=== PATIENT | male | born 1960 | race Caucasian/White ===

== ENCOUNTER 2022-01-18 15:25 | Emergency (ER) | payer OTHER, SELFPAY ==
[2022-01-18 15:19] VITALS: BP 127/67; PULSE 82; RESP 18; TEMP 36.8; O2SAT 98; BMI 23.2
--- NOTE | 2022-01-18 15:41 | ED_ITS ---
HPI - Weakness General Chief complaint: Diabetic Related Problem Stated complaint: WEAKNESS,DIABETIC CONCERN Source: patient, family, RN notes reviewed and old records reviewed History of Present Illness HPI Narrative: 61-year-old man presenting to the emergency department with complaint of weakness particularly in arms and legs. Underlying history of diabetes. Has continuous glucose monitoring. Takes insulin. has been having elevated blood sugars lately or least today, he says he when out of his apartment noted how just generally weak he felt and so called for EMS. Does not describe new sensory loss. There is no syncope. No sense of chest pain or palpitations. No fevers. He says this is so unusual even with elevated blood sugars he does does not understand why he feels so weak. No cough or cold symptoms. He says he is due for his 2:00 o'clock meds. Is particularly concerned about alprazolam. Minimal records are available. Document summary printed from [employer] is helpful problem list includes- Cardiac murmur Hypertension Coronary artery disease status post CABG Hypothyroid-acquired Proliferative diabetic retinopathy Diabetes type 1 with complications Long-term use insulin Lumbar disc disease Trauma and osteoarthritis of both knees Parkinson's Postconcussion syndrome Depression with anxiety Bipolar 2 disorder PTSD Number loss Asthma mild intermittent Appears to have chronic pain. Status post vitrectomy new Peterson extraction lens reimplantation bilaterally Arthroscopically of the knee Shoulder arthroscopy bilateral with labral repairs Again 4 vessel CABG Medications include Lexapro, fentanyl patch, gabapentin, glucagon, hydrocortisone cream, hydroxyzine, ibuprofen, NovoLog, Lantus, regular insulin, levothyroxine, magnesium, meclizine, memantine, metoclopramide, Narcan, nitroglycerin, Zofran, oxycodone, risperidone, tamsulosin, triamcinolone ointment, turmeric, vitamin-C with gonzalo hips Single living in apartment A small cigarette smoke-does note he smokes cigars now. Quit smoking cigarettes he says 5 years ago. Looks like smokes more than an occasional cigar, fairly regular. Related Data Home Medications Medication Instructions Recorded Confirmed Unobtainable 01/18/22 01/18/22 Allergies Allergy/AdvReac Type Severity Reaction Status Date / Time walnut Allergy Anaphylaxis Verified 01/18/22 17:39 prednisone AdvReac Intermediate elevated Verified 01/18/22 17:39 blood sugar Review of Systems Status of ROS: Reports: 10 or more systems reviewed and unremarkable except as noted in History and below [facility] Social History Smoking Status: Light tobacco smoker What tobacco products do you use: cigars Do you use any of these nicotine containing products: None Second hand tobacco smoke exposure: No How often do you have a drink containing alcohol: never AUDIT-C Alcohol total score: 0 Non-prescribed substance use: denies use Exam Narrative: Exam Narrative: Small stature. Pleasant. NAD. GCS 15. Cranial nerves 2-12 intact Well perfused peripherally moving all extremities without difficulty, appears to have normal strength and intact sensation. no edema. Head looks to be atraumatic. Slight the ptosis of the left eye versus the right I think this is probably chronic. There is no scleral injection or icterus. Oropharynx is moist Lungs are clear CV includes a 2/6 systolic murmur regular rate and rhythm Abdomen is soft and nontender. Glucose monitor in place are no inflammatory changes. Const: Vital Signs, click to edit/add: Vital Signs - 24 hr 01/18/22 15:19 01/18/22 18:55 Temperature 98.3 F Pulse Rate 90 Pulse Rate [Pulse Oximeter] 82 Respiratory Rate 18 18 Blood Pressure 140/69 H Blood Pressure [Ri ght Upper Arm] 127/67 Pulse Oximetry 98 Documenting provider has reviewed patient's vital signs: yes Course Course Hospital Course: EKG reviewed by me shows normal sinus at 78 I don't see ischemic changes Will be initiating IV fluids. Pending evaluation for infectious etiologies elevating blood sugars. initial blood sugar here was 357. Discussed recommendations for treating that with Mr. Law. He said quickly that 2 units are how would typically handle that. Is ordered for 2 units of regular insulin. bs recheck on continuous monitor about 1 hour later was ~230's. asked how he would treat, said wouldn't accept more than 1 unit humalog was quite improved he noted. no more weakness. felt could go home and manage. Vital Signs Vital signs: Initial Vital Signs Temperature 98.3 F 01/18/22 15:19 Temperature Source Temporal Artery Scan 01/18/22 15:19 Pulse Rate 82 01/18/22 15:19 Respiratory Rate 18 01/18/22 15:19 Blood Pressure 127/67 01/18/22 15:19 Blood Pressure Mean 87 07/10/22 15:19 Blood Pressure Position Supine 01/18/22 15:19 Pulse Oximetry 98 01/18/22 15:19 Oxygen Delivery Method 01/18/22 15:19 Vital Signs Temperature 98.3 F 01/18/22 15:19 Pulse Rate 82 01/18/22 15:19 Respiratory Rate 18 01/18/22 15:19 Blood Pressure 127/67 01/18/22 15:19 Pulse Oximetry 98 01/18/22 15:19 Temperature 98.3 F 01/18/22 15:19 Pulse Rate 90 01/18/22 18:55 Respiratory Rate 18 01/18/22 18:55 Blood Pressure 140/69 H 01/18/22 18:55 Pulse Oximetry 98 01/18/22 15:19 MDM - Weakness MDM Narrative Medical decision making narrative: no focal weakness. sxs resolved. treated for anxiety -- took own alprazolam -- we were notified after the fact. while here called numerous friends/acquaintances. one brought meds i believe. minimal findings on w/u. small ketones in urine. improved blood sugars which he reports very capable to manage on own Medical Records Attestation: I reviewed the patient's medical records. Lab Data Attestation: I reviewed the patient's lab results. Labs: Lab Results 01/18/22 01/18/22 01/18/22 Range/Units 16:10 16:11 16:11 WBC 8.13 (4.50-11.00) K/uL RBC 4.03 L (4.30-5.90) m/uL Hgb 13.6 (13.5-17.5) gm/dL Hct 38.5 (37.0-53.0) % MCV 96 (80-100) fL MCH 34 (26-34) pg MCHC 35 (32-36) gm/dL RDW Coeff of Jayjay 11.8 (11.5-15.5) % Plt Count 224 (140-440) K/uL Neut % (Auto) 85.0 H (42.0-72.0) % Lymph % (Auto) 10.0 L (20-44) % Morrison % (Auto) 3.8 (0.0-11.0) % Eos % (Auto) 0.2 (0.0-7.0) % Baso % (Auto) 0.6 (0.0-3.0) % Neut # (Auto) 6.90 (1.7-7.0) K/uL Lymph # (Auto) 0.80 L (0.90-2.90) K/uL Morrison # (Auto) 0.30 (0.00-0.90) K/UL Eos # (Auto) 0.02 (0.00-0.50) K/uL Baso # (Auto) 0.05 (0.00-0.30) K/uL Abs Immat Gran (auto) 0.03 (0.00-0.30) K/uL Sodium 133 L (135-149) mmol/L Potassium 3.8 (3.6-5.1) mmol/L Chloride 100 (96-114) mmol/L Carbon Dioxide 27 (20-32) mmol/L BUN 12 (7-30) mg/dL Creatinine 0.8 (0.5-1.5) mg/dL Estimated Creat Clear 63.31 Glucose 357 H* (60-115) mg/dL Venous Lactic Acid (Serial Order) Calcium 8.9 (8.4-10.6) mg/dL Total Bilirubin (0.1-1.5) mg/dL Direct Bilirubin (0.0-0.5) mg/dL AST (12-35) U/L ALT (4-50) U/L Alkaline Phosphatase (40-150) U/L Troponin I (0.01-0.04) ng/mL C-Reactive Protein (0.5-1.0) mg/dL Total Protein (6.0-8.3) g/dL Albumin (3.3-5.0) g/dL Urine Color (Yellow) Urine Appearance (Clear) Urine pH (5.0-8.5) Ur Specific Goldfield (1.000-1.030) Urine Protein (Negative) Urine Glucose (UA) (Negative) Urine Ketones (Negative) Urine Blood (Negative) Urine Nitrite (Negative) Urine Bilirubin (Negative) Urine Urobilinogen (0.2-1.0) Ur Leukocyte Esterase (Negative) Urine RBC (0-2) Urine WBC (0-5) Ur Squamous Epith Cells (None-Few) Urine Bacteria (None) Urine Trichomonas Ethyl Alcohol (0.01-0.03) % SARS-CoV-2 (PCR) Negative SARS-CoV-2 (Negative) 01/18/22 01/18/22 01/18/22 Range/Units 16:11 16:11 16:30 WBC (4.50-11.00) K/uL RBC (4.30-5.90) m/uL Hgb (13.5-17.5) gm/dL Hct (37.0-53.0) % MCV (80-100) fL MCH (26-34) pg MCHC (32-36) gm/dL RDW Coeff of Jayjay (11.5-15.5) % Plt Count (140-440) K/uL Neut % (Auto) (42.0-72.0) % Lymph % (Auto) (20-44) % Morrison % (Auto) (0.0-11.0) % Eos % (Auto) (0.0-7.0) % Baso % (Auto) (0.0-3.0) % Neut # (Auto) (1.7-7.0) K/uL Lymph # (Auto) (0.90-2.90) K/uL Morrison # (Auto) (0.00-0.90) K/UL Eos # (Auto) (0.00-0.50) K/uL Baso # (Auto) (0.00-0.30) K/uL Abs Immat Gran (auto) (0.00-0.30) K/uL Sodium (135-149) mmol/L Potassium (3.6-5.1) mmol/L Chloride (96-114) mmol/L Carbon Dioxide (20-32) mmol/L BUN (7-30) mg/dL Creatinine (0.5-1.5) mg/dL Estimated Creat Clear Glucose (60-115) mg/dL Venous Lactic Acid (Serial Order) Calcium (8.4-10.6) mg/dL Total Bilirubin 0.7 (0.1-1.5) mg/dL Direct Bilirubin 0.3 (0.0-0.5) mg/dL AST 27 (12-35) U/L ALT 31 (4-50) U/L Alkaline Phosphatase 158 H (40-150) U/L Troponin I 0.01 (0.01-0.04) ng/mL C-Reactive Protein < 0.5 L (0.5-1.0) mg/dL Total Protein 6.2 (6.0-8.3) g/dL Albumin 3.9 (3.3-5.0) g/dL Urine Color Yellow (Yellow) Urine Appearance Slightly Cloudy A (Clear) Urine pH 7.0 (5.0-8.5) Ur Specific Goldfield 1.015 (1.000-1.030) Urine Protein Negative (Negative) Urine Glucose (UA) 2+ A (Negative) Urine Ketones 1+ A (Negative) Urine Blood Negative (Negative) Urine Nitrite Negative (Negative) Urine Bilirubin Negative (Negative) Urine Urobilinogen 0.2 (0.2-1.0) Ur Leukocyte Esterase Negative (Negative) Urine RBC 0-2 (0-2) Urine WBC 0-2 (0-5) Ur Squamous Epith Cells None (None-Few) Urine Bacteria None (None) Urine Trichomonas TNP Ethyl Alcohol < 0.01 L (0.01-0.03) % SARS-CoV-2 (PCR) (Negative) Discharge Plan Discharge Clinical Impression: Hyperglycemia, Weakness Patient Disposition: Home w/ Parent or Adult Condition: Improved Additional Instructions: Continue to pay close attention to blood sugars. Treat according to your sliding scales. Return for worsening weakness, fever, repeated vomiting. Prescriptions: No Action Unobtainable 0RF Follow Up/Referrals: Provider,Not a Local [Primary Care Provider] - Stand Alone Forms: [facility] Info Instructions
[2022-01-18] MEDS: 0.9 % SODIUM CHLORIDE 1000 ml 1,000 ML IV (16:09)
[2022-01-18 16:26] LABS: Lactate Sepsis w/Reflex* 1.8 mmol/L (0.5-1.9)
[2022-01-18 16:28] LABS: Basophils Absolute Auto 0.05 K/uL (0.00-0.30); Basophils Percent Auto 0.6 % (0.0-3.0); Eosinophils Absolute Auto 0.02 K/uL (0.00-0.50); Eosinophils Percent Auto 0.2 % (0.0-7.0); Hematocrit 38.5 % (37.0-53.0); Hemoglobin* 13.6 gm/dL (13.5-17.5); Immature Granulocytes Abs Auto 0.03 K/uL (0.00-0.30); Mean Corpuscular HGB Conc 35 gm/dL (32-36); Mean Corpuscular Hemoglobin 34 pg (26-34); Mean Corpuscular Volume 96 fL (80-100); Monocytes Percent Auto 3.8 % (0.0-11.0); Platelet Count* 224 K/uL (140-440); RDW Coefficient of Variation % 11.8 % (11.5-15.5); Red Blood Count 4.03 m/uL (4.30-5.90); White Blood Count* 8.13 K/uL (4.50-11.00)
[2022-01-18 16:29] LABS: Slide Review Reflex No
--- NOTE | 2022-01-18 16:35 | ED.NURSE ---
Assisted pt w/ urinal. Informed pt that there is an order for Ativan. Pt asked what it is, informed pt it is similar to his home xanax. Pt then stated I already took my own xanax. aware and ordered to hold ativan.
[2022-01-18 16:39] LABS: Appearance Urine Slightly Cloudy (Clear); Bilirubin Urine Negative (Negative); Blood Urine Negative (Negative); Color Urine Yellow (Yellow); Glucose Urine 2+ (Negative); Ketones Urine 1+ (Negative); Leukocyte Esterase Urine Negative (Negative); Nitrite Urine Negative (Negative); Protein Urine Negative (Negative); Specific Gravity Urine 1.015 (1.000-1.030); Urobilinogen Urine 0.2 (0.2-1.0)
[2022-01-18 16:42] LABS: Chloride* 100 mmol/L (96-114); Potassium* 3.8 mmol/L (3.6-5.1); Sodium* 133 mmol/L (135-149)
[2022-01-18 16:43] LABS: Albumin* 3.9 g/dL (3.3-5.0)
[2022-01-18 16:45] LABS: Blood Urea Nitrogen* 12 mg/dL (7-30); Carbon Dioxide* 27 mmol/L (20-32); Creatinine* 0.8 mg/dL (0.5-1.5); Est. Creatinine Clearance* 63.31; Estimated Glomerular Filt Rate 99.44
[2022-01-18 16:46] LABS: Alkaline Phosphatase* 158 U/L (40-150); Aspartate Amino Transferase* 27 U/L (12-35); Bilirubin Direct* 0.3 mg/dL (0.0-0.5); Bilirubin Total* 0.7 mg/dL (0.1-1.5); Calcium* 8.9 mg/dL (8.4-10.6); Total Protein* 6.2 g/dL (6.0-8.3)
[2022-01-18 16:47] LABS: Alanine Aminotransferase* 31 U/L (4-50)
[2022-01-18 16:49] LABS: RBC Urine 0-2 (0-2); WBC Urine 0-2 (0-5)
[2022-01-18 16:57] LABS: Glucose* 357 mg/dL (60-115)
[2022-01-18 16:58] LABS: C Reactive Protein* < 0.5 mg/dL (0.5-1.0); Ethanol* < 0.01 % (0.01-0.03); Troponin I* 0.01 ng/mL (0.01-0.04)
--- NOTE | 2022-01-18 16:58 | ED.NURSE ---
Critical lab received, blood sugar 357. Dr. Sellers updated.
[2022-01-18 17:05] LABS: SARS PCR* Negative SARS-CoV-2 (Negative)
[2022-01-18 18:55] VITALS: BP 140/69; PULSE 90; RESP 18
== END 2022-01-18 18:56 | disposition home or self-care (01) ==
PROVIDERS: Emergency Provider Family Medicine
DX: E11.65 Type 2 diabetes mellitus with hyperglycemia (principal); R53.1 Weakness
CPT/HCPCS: 36415; 80048; 80076; 81003; 81015; 82077; 84484; 85025; 86140; 87040; 87635; 93005; 99283; 99284; A0425; A0427; J7030

== ENCOUNTER 2022-01-27 13:12 | Outpatient (CLI) | payer OTHER, SELFPAY | END 2022-01-27 13:13 | disposition home or self-care (01) | PROVIDERS: Visit Provider Family Medicine | DX: M17.12 Unilateral primary osteoarthritis, left knee (principal); M25.562 Pain in left knee | CPT/HCPCS: 64454 ==

== ENCOUNTER 2022-02-19 14:52 | Emergency (ER) | payer OTHER, SELFPAY ==
[2022-02-19 15:14] VITALS: BP 151/67; PULSE 76; RESP 16; TEMP 36.2; O2SAT 98; BMI 24.0
--- NOTE | 2022-02-19 15:20 | ED_ITS ---
HPI - General Adult General Chief complaint: Unspecified Complaint, Adult Stated complaint: Needs tetanus shot Time Seen by Provider: 02/19/22 15:00 History of Present Illness HPI narrative: This 61-year-old male comes in for a tetanus vaccination. He states that he called the clinic and was told to come here. He cut his right forearm a couple days ago and has a Band-Aid over wound that seems to be healing properly. He does not have any complaints. Related Data Home Medications Medication Instructions Recorded Confirmed Unobtainable 01/18/22 01/18/22 Allergies Allergy/AdvReac Type Severity Reaction Status Date / Time walnut Allergy Anaphylaxis Verified 01/18/22 17:39 prednisone AdvReac Intermediate elevated Verified 01/18/22 17:39 blood sugar Review of Systems Status of ROS: Reports: 10 or more systems reviewed and unremarkable except as noted in History and below Narrative: Constitutional: No fevers, no weight gain or loss. Eyes: No discharge. No vision changes. HENT: No congestion, no sore throat, no ear pain. Cardiovascular: No chest pain, no palpitations. Respiratory: No shortness of breath, no wheezes, no cough. Gastrointestinal: No abdominal pain, no vomiting, no diarrhea. Genitourinary: No dysuria, no hematuria. Musculoskeletal: Normal range of motion. Skin: No rashes, no pruritis. Neurological: No dizziness, weakness, sensory change, speech change. Endo/Heme/Allergies: No bruising or bleeding. No polydipsia. Pysch: no suicidality, no anxiety, no insomnia. All other systems reviewed and are negative. [facility] Social History Smoking Status: Light tobacco smoker What tobacco products do you use: cigars Do you use any of these nicotine containing products: None Second hand tobacco smoke exposure: No How often do you have a drink containing alcohol: never AUDIT-C Alcohol total score: 0 Non-prescribed substance use: denies use Exam Narrative: Exam Narrative: Constitutional: Well-developed, well-nourished, no acute distress. HEENT: Normocephalic, atraumatic. Neck: Normal range of motion. Nontender. Supple. Heart: Intact distal pulses. Lungs: No chest discomfort. No wheezes, rhonchi, or rales. Abdomen: Nontender. Back: Normal range of motion. Extremities: Normal range of motion. Right forearm has an abrasion with a small full-thickness injury that appears to be healing properly. Skin: Intact. No rash. Warm. No erythema or pallor. Neurologic: No altered sensation. No weakness. Alert and oriented. Psychiatric: No suicidality. No anxiety or depression. No insomnia. Nursing notes and vitals signs are reviewed. Const: Vital Signs, click to edit/add: Vital Signs - 24 hr 02/19/22 15:14 Temperature 97.1 F L Pulse Rate [Right Pulse Oximeter] 76 Respiratory Rate 16 Blood Pressure [Ri ght Upper Arm] 151/67 H Pulse Oximetry 98 Oxygen Delivery Me thod Room Air Course Vital Signs Vital signs: Initial Vital Signs Temperature 97.1 F L 02/19/22 15:14 Temperature Source Temporal Artery Scan 02/19/22 15:14 Pulse Rate 76 02/19/22 15:14 Respiratory Rate 16 02/19/22 15:14 Blood Pressure 151/67 H 02/19/22 15:14 Blood Pressure Mean 95 02/19/22 15:14 Blood Pressure Position Sitting 02/19/22 15:14 Pulse Oximetry 98 02/19/22 15:14 Oxygen Delivery Method 02/19/22 15:14 Vital Signs Temperature 97.1 F L 02/19/22 15:14 Pulse Rate 76 02/19/22 15:14 Respiratory Rate 16 02/19/22 15:14 Blood Pressure 151/67 H 02/19/22 15:14 Pulse Oximetry 98 02/19/22 15:14 Oxygen Delivery Method 02/19/22 15:14 Temperature 97.1 F L 02/19/22 15:14 Pulse Rate 76 02/19/22 15:14 Respiratory Rate 16 02/19/22 15:14 Blood Pressure 151/67 H 02/19/22 15:14 Pulse Oximetry 98 02/19/22 15:14 Oxygen Delivery Method 02/19/22 15:14 Medical Decision Making MDM Narrative Medical decision making narrative: This patient comes in simply to get a tetanus vaccination. He attempted to call the clinic and was instructed to come here. He did receive a tetanus vaccination. His wound appears to be healing properly and there is no indication for any further intervention. Discharge Plan Discharge Clinical Impression: Laceration Patient Disposition: Home, Self-Care Condition: Stable Instructions: Laceration (ED) Additional Instructions: Keep wound clean and dry. Follow up with MD as needed. Prescriptions: No Action Unobtainable Follow Up/Referrals: Provider,Not a Local [Primary Care Provider] - Stand Alone Forms: [employer] Info Instructions
[2022-02-19] MEDS: TETANUS/DIPHTH/PERTUSSIS 0.5 ML SYRINGE IM (15:45)
== END 2022-02-19 15:50 | disposition home or self-care (01) ==
PROVIDERS: Emergency Provider Emergency Medicine Emergency Medical Services
DX: S51.811A Laceration without foreign body of right forearm, initial encounter (principal); Z23 Encounter for immunization
CPT/HCPCS: 90471; 90715; 99281; 99283

== ENCOUNTER 2022-02-20 20:33 | Outpatient (REF) | payer OTHER, SELFPAY ==
[2022-02-20 21:21] LABS: SARS PCR* Negative SARS-CoV-2 (Negative)
== END 2022-02-20 20:34 | disposition home or self-care (01) ==
LOC: NPINS 20:33
PROVIDERS: Visit Provider Family Medicine
DX: Z20.822 Contact with and (suspected) exposure to COVID-19 (principal)
CPT/HCPCS: 87635

== ENCOUNTER 2022-02-24 12:11 | Outpatient (CLI) | payer OTHER, SELFPAY | END 2022-02-24 12:12 | disposition home or self-care (01) | LOC: INJ CL 12:12 | PROVIDERS: Visit Provider Family Medicine | DX: M17.12 Unilateral primary osteoarthritis, left knee (principal); G89.29 Other chronic pain; M25.562 Pain in left knee | CPT/HCPCS: 64624; J2250; J3010 ==

== ENCOUNTER 2022-04-14 17:43 | Emergency (ER) | payer OTHER, SELFPAY ==
[2022-04-14 18:16] VITALS: BP 122/53; PULSE 82; RESP 18; TEMP 37.3; O2SAT 96; BMI 24.2
--- NOTE | 2022-04-14 20:12 | ED.GENADULT ---
HPI - General Adult General Chief complaint: Skin/Abscess/Foreign Body Stated complaint: Insulin needle broke in stomach Time Seen by Provider: 04/14/22 20:05 Source: patient Mode of arrival: ambulatory Limitations: no limitations History of Present Illness HPI narrative: 62-year-old male coming in today concerned about a needle stuck in his abdomen. He states he was given himself an insulin shot when he removed the syringe the needle was gone. This happened several hours ago. He has no significant discomfort. No other concerns. Patient shows me what his needles look like they are less than a 1/2 inch, 30 gauge needles. Patient does however tell me that he is not 100% sure that the needle was in there. Related Data Home Medications Medication Instructions Recorded Confirmed Unobtainable 01/18/22 01/18/22 Allergies Allergy/AdvReac Type Severity Reaction Status Date / Time walnut Allergy Anaphylaxis Verified 01/18/22 17:39 prednisone AdvReac Intermediate elevated Verified 01/18/22 17:39 blood sugar Review of Systems Status of ROS: Reports: 6 or more systems reviewed and unremarkable except as noted in History and below PFSH PFS Social History Smoking Status: Light tobacco smoker What tobacco products do you use: cigars Do you use any of these nicotine containing products: None Second hand tobacco smoke exposure: No How often do you have a drink containing alcohol: never AUDIT-C Alcohol total score: 0 Non-prescribed substance use: denies use service: No Exam Narrative: Exam Narrative: Well-nourished well-developed patient in no acute distress. Alert and oriented. Answers questions appropriately. Mood and affect are appropriate. Thoughts are goal oriented and rational. No tangential or magical thinking noted. Patient speaks in full sentences without needing to catch his breath. HEENT: Normocephalic atraumatic. Pupils are equally round reactive to light. Extraocular muscles are intact. Conjunctivae are moist without any icterus noted. Abdomen: Soft and nontender nondistended with normal bowel sounds. No guarding or rebound. He has some ecchymosis of the anterior abdominal wall consistent with injections. The area that he believes the needle is in is the left lower quadrant. In that area there is no swelling, erythema, sharp objects/foreign objects felt. Const: Vital Signs, click to edit/add: Vital Signs - 24 hr 04/14/22 18:16 Temperature 99.2 F Pulse Rate [Right Pulse Oximeter] 82 Respiratory Rate 18 Blood Pressure [Ri ght Upper Arm] 122/53 L Pulse Oximetry 96 Oxygen Delivery Me thod Room Air Course Vital Signs Vital signs: Initial Vital Signs Temperature 99.2 F 04/14/22 18:16 Temperature Source Temporal Artery Scan 04/14/22 18:16 Pulse Rate 82 04/14/22 18:16 Respiratory Rate 18 04/14/22 18:16 Blood Pressure 122/53 L 04/14/22 18:16 Blood Pressure Mean 76 04/14/22 18:16 Blood Pressure Position Sitting 04/14/22 18:16 Pulse Oximetry 96 04/14/22 18:16 Oxygen Delivery Method 04/14/22 18:16 Vital Signs Temperature 99.2 F 04/14/22 18:16 Pulse Rate 82 04/14/22 18:16 Respiratory Rate 18 04/14/22 18:16 Blood Pressure 122/53 L 04/14/22 18:16 Pulse Oximetry 96 04/14/22 18:16 Oxygen Delivery Method 04/14/22 18:16 Temperature 99.2 F 04/14/22 18:16 Pulse Rate 82 04/14/22 18:16 Respiratory Rate 18 04/14/22 18:16 Blood Pressure 122/53 L 04/14/22 18:16 Pulse Oximetry 96 04/14/22 18:16 Oxygen Delivery Method 04/14/22 18:16 Medical Decision Making MDM Narrative Medical decision making narrative: 62-year-old male with potential foreign body imbedded in the abdominal skin. We discussed doing an x-ray versus ultrasound to see if the needle was there verses not doing anything at this time given that the needle is too small to be appreciated on examination. Patient wishes to do nothing at this time. We discussed things to watch for such as infection, redness swelling or worsening pain. Discharge Plan Discharge Clinical Impression: Foreign body in skin Patient Disposition: Home, Self-Care Condition: Stable Additional Instructions: Watch for signs of infection including redness or swelling of the area. Return to the ER if any of these things developed or you develop worsening pain. Prescriptions: No Action Unobtainable Follow Up/Referrals: Provider,Not a Local [Primary Care Provider] - Stand Alone [facility] Inst[facility]
[2022-04-14 20:21] VITALS: PULSE 84; RESP 16; TEMP 36.7; O2SAT 97
--- OUTSIDE RECORDS SUMMARY | 2022-04-14 20:23 | XMS_ITS | Clinical Summary ---
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 PM CDT Chronic bilateral low back pain without sciatica Other low back p ain Other chronic pa in Other depression Anxiety PTSD (post-traumatic stress disorder) AK INJECTION Routine 01/27/2022 12:00 Primary osteoarthritis R esults for this AA&/STRD GENICULAR AM CDT of both knees procedure are in NRV BRANCHES W/IMG Chronic pain of left t he results knee section. Chronic pain of right knee AMB CONSULT FOR Routine 01/27/2022 12:00 Primary osteoarthriti s Results for this INJECTION AM CDT of both knees procedure are in Chronic pain of left the res ults knee section. Chronic pain of right knee SCAN-OPERATIVE/PROC 01/27/2022 12:00 Resu lts for this EDURE REPORT AM CDT procedure are i n the results section. ACUPUNCTURE PLAN OF Routine 01/22/2022 1:42 Vertigo CARE PM CDT Chronic bilateral low back pain without sciatica Other low back p ain Other chronic pa in Other depression Anxiety PTSD (post-traumatic stress disorder) VITAMIN B12 Routine 01/19/2022 3:30 Bilateral numbness and Re sults for this PM CDT tingling of arms and procedu re are in legs the results section. TSH Routine 01/19/2022 3:30 Bilateral numbness and Re sults for this PM CDT tingling of arms and procedu re are in legs the results section. CBC W PLT NO DIFF Routine 01/19/2022 3:30 Bilateral numbness a nd Results for this PM CDT tingling of arms and procedu re are in legs the results section. COMP METABOLIC Routine 01/19/2022 3:30 Bilateral numbness and Results for this PANEL PM CDT tingling of arms and procedu re are in legs the results section. SCAN-LABORATORY 01/19/2022 12:00 Results for this REPORT AM CDT procedure are i n the results section. SCAN-EYE EXAM 01/18/2022 12:00 Results fo r this AM CDT procedure are i n the results section. ACUPUNCTURE PLAN OF Routine 01/15/2022 1:44 Vertigo CARE PM CDT Chronic bilateral low back pain without sciatica Other low back p ain Other chronic pa in Other depression Anxiety PTSD (post-traumatic stress disorder) ACUPUNCTURE PLAN OF Routine 01/13/2022 1:48 Vertigo CARE PM CDT Chronic bilateral low back pain without sciatica Other low back p ain Other chronic pa in Other depression Anxiety PTSD (post-traumatic stress disorder) from Last 3 Months Results (ABNORMAL) HEMOGLOBIN A1C MONITORING (POCT) (03/23/2022 1:09 PM CDT) Analysis Performed At Patho logist Time Signature HEMOGLOBIN A1C 7.2 (H) <=6.4 % 03/23/2022 [facility] 2:26 PM CDT HOSPITAL (POCT) LABORATORY Specimen Anatomical Collection Method / Collection Time Recei urbano Time (Source) Location / Volume Laterality Blood BLOOD SPECIMEN / Venipuncture / 03/23/2022 1:09 2021 1:10 Unknown Unknown PM CDT PM CDT Narrative [facility] - 03/23/2022 2:26 PM CDT ? (<=6.9%) ? Indicates good control ? (7.0% to 7.9%) ? Indicates fa ir control ? (>=8.0%) ? Indicates poor control ?? NOTE: ??These thresholds are guideli cecilio and ?individual targets may va ry. Falsely low levels may be seen with: Recent Transfusion, Recent Significant B lood Loss, Hemolytic Diseases, or Falsely elevated levels may be seen with : Untreated Anemias, Splenectomy ? Brian Hernandez MD CHEMISTRY Performing Organization Address City/State/ZIP Code Phon e Number [facility] SENDOUT INTERNAL ZIP [place] [phone] [place] [address] (ABNORMAL) BASIC METABOLIC PANEL (03/23/2022 1:09 PM CDT) Analysis Performed At Patho logist Time Signature SODIUM 137 135 - 145 03/23/2022 [facility] mmol/L 1:40 PM CDT [facility]ITAL LAB[facility] POTASSIUM 4.5 3.5 - 5.0 03/23/2022 [facility] mmol/L 1:40 PM CDT [facility] CHLORIDE 101 98 - 110 03/23/2022 [facility] mmol/L 1:40 PM T [facility]OSPITAL LAB[facility] CO2,TOTAL 29 21 - 31 03/23/2022 [facility] mmol/L 1:40 PM T [facility] LAB[facility] ANION GAP 7 5 - 18 03/23/2022 [facility] 1:40 PM T [facility] GLUCOSE 133 (H) 65 - 100 03/23/2022 [facility] mg/dL 1:40 PM T [facility] CALCIUM 9.4 8.5 - 10.5 03/23/2022 [facility] mg/dL 1:40 PM T [facility] BUN 14 8 - 25 03/23/2022 [facility] mg/dL 1:40 PM T [facility] CREATININE 0.93 0.72 - 03/23/2022 [facility] 1.25 mg/dL 1:40 PM T [facility] BUN/CREAT RATIO 15 10 - 20 03/23/2022 [facility] 1:40 PM T [facility] LAB[facility]ORY eGFR >90 >90 03/23/2022 [facility] mL/min/1.7 1:40 PM T HOSPITAL 3m2 LABORATORY Comment: As of 2021, eGFR is calcu lated by the CKD-EPI creatinine equation without race adjustment. eGFR can be inf luenced by muscle mass, exercise, and diet. The reported eGFR is an estimation only and is only applicable if the renal function is stable. Specimen Anatomical Collection Method / Collection Time Recei urbano Time (Source) Location / Volume Laterality Blood BLOOD SPECIMEN / Venipuncture / 03/23/2022 1:09 2021 1:10 Unknown Unknown PM CDT PM CDT Brian Hernandez MD CHEMISTRY Performing Organization Address City/State/ZIP Code Phon e Number [facility] SENDOUT INTERNAL ZIP [place], [place] [phone] [facility] AMB CONSULT FOR INJECTION (02/24/2022 12:00 AM CDT)Only the most recent of2 resultswithin the time period is included. Narrative This result has an attachment that is no t available. Cliff Meehan MD AMB REFERRAL/CONSULT ORD SCAN-LABORATORY REPORT (02/20/2022 12:00 AM CDT)Only the most recent of3 results within the time period is included. Narrative This result has an attachment that is no t available. Scanner OTHER [place] INJECTION AA&/STRD GENICULAR NRV BRANCHES W/IMG (01/27/2022 12:00 AM CDT) Narrative This result has an attachment that is no t available. Cliff Meehan MD PB - NERVOUS SYSTEM SERVICES SCAN-OPERATIVE/PROCEDURE REPORT (01/27/2022 12:00 AM CDT) Narrative This result has an attachment that is no t available. Scanner OTHER (ABNORMAL) TSH (01/19/2022 3:30 PM CDT) P athologist Signature TSH 0.10 (L) 0.35 - 4.94 01/20/2022 [facility] uIU/mL 3:53 PM CDT LABORATORY-[facility] LABORATORY Specimen Anatomical Collection Method / Collection Time Recei urbano Time (Source) Location / Volume Laterality Blood BLOOD SPECIMEN / Venipuncture / 01/19/2022 3:30 2021 3:30 Unknown Unknown PM CDT PM CDT Narrative [facility] LABORATORY-CENTRAL LABORAT ORY - 01/20/2022 3:53 PM CDT In Adults, TSH values between 5.00 and 10.00 uIU/ml do not necessarily indicate the presence of Hyp othyroidism. Correlation with clinical findings such as presence of goiter and/or Thyroperoxidase (TPO) Antibody ma y be helpful. For more information please refer to [facility] 20 ; 291: [id number]. Tayler Adler DO CHEMISTRY Performing Organization Address City/State/ZIP Code Phon e Number [facility] [address] [place] [address] LABORATORY-CENTRAL 2000 LABORATORY (ABNORMAL) CBC W PLT NO DIFF (01/19/2022 3:30 PM CDT) Analysis Performed At Patho logist Time Signature WHITE BLOOD 11.4 (H) 4.5 - 11.0 01/19/2022 [facility] COUNT thou/cu mm 3:33 PM CDT [facility] RED BLOOD COUNT 3.93 (L) 4.30 - 01/19/2022 [facility] 5.90 3:33 PM CDT [facility] mil/cu [facility] HEMOGLOBIN 13.6 13.5 - 01/19/2022 [facility] 17.5 g/dL 3:33 PM CDT [facility] HEMATOCRIT 37.3 37.0 - 01/19/2022 [facility] 53.0 % 3:33 PM CDT [facility] MCV 95 80 - 100 01/19/2022 [facility] fL 3:33 PM CDT [facility] MCH 34.6 (H) 26.0 - 01/19/2022 [facility] 34.0 pg 3:33 PM CDT [facility] MCHC 36.5 (H) 32.0 - 01/19/2022 [facility] 36.0 g/dL 3:33 PM CDT [facility] RDW 11.9 11.5 - 01/19/2022 [facility] 15.5 % 3:33 PM CDT [facility] PLATELET COUNT 245 140 - 440 01/19/2022 [facility] thou/cu mm 3:33 PM CDT [facility] MPV 8.8 6.5 - 11.0 01/19/2022 [facility] fL 3:33 PM CDT [facility] Specimen Anatomical Collection Method / Collection Time Recei urbano Time (Source) Location / Volume Laterality Blood BLOOD SPECIMEN / Venipuncture / 01/19/2022 3:30 2021 3:30 Unknown Unknown PM CDT PM CDT Tayler Adler DO HEMATOLOGY Performing Organization Address City/State/ZIP Code Phon e Number [facility] [address] [place], [place] [phone] [facility] [id number] VITAMIN B12 (01/19/2022 3:30 PM CDT) P athologist Signature VITAMIN B12 272 456 - 914 01/21/2022 [facility] pg/mL 9:57 AM CDT LABORATORY-[facility] LABORATORY Specimen Anatomical Collection Method / Collection Time Recei urbano Time (Source) Location / Volume Laterality Blood BLOOD SPECIMEN / Venipuncture / 01/19/2022 3:30 2021 3:30 Unknown Unknown PM CDT PM CDT Tayler Pepper Adler DO CHEMISTRY Performing Organization Address City/State/ZIP Code Phon e Number [email or web address] [address] [place] [address] LABORATORY-CENTRAL 2000 LABORATORY (ABNORMAL) COMP METABOLIC PANEL (01/19/2022 3:30 PM CDT) [facility] gist Method Time Signature SODIUM 137 135 - 145 01/20/2022 [facility] mmol/L 3:36 PM CDT LABORATORY-[facility]AL LABORATORY POTASSIUM 4.1 3.5 - 5.0 01/20/2022 [facility] mmol/L 3:36 PM CDT LABORATORY-[facility] LABORATORY CHLORIDE 99 98 - 110 01/20/2022 [facility] mmol/L 3:36 PM CDT LABORATORY-[facility] LABORATORY CO2,TOTAL 25 21 - 31 01/20/2022 [facility] mmol/L 3:36 PM CDT LABORATORY-[facility] TRAL LABORATORY ANION GAP 13 5 - 18 01/20/2022 [facility] 3:36 PM CDT LABORATORY-[facility] LABORATORY GLUCOSE 168 (H) 65 - 100 01/20/2022 [facility] mg/dL 3:36 PM CDT LABORATORY-[facility]AL LABORATORY CALCIUM 9.7 8.5 - 10.5 01/20/2022 [facility] mg/dL 3:36 PM CDT LABORATORY-[facility]A TRAL LABORATORY BUN 8 8 - 25 01/20/2022 [facility] mg/dL 3:36 PM CDT LABORATORY-THA TRAL LABORATORY CREATININE 1.03 0.72 - 01/20/2022 [facility] 1.25 mg/dL 3:36 PM CDT LABORATORY-THA TRAL LABORATORY BUN/CREAT RATIO 8 (L) 10 - 20 01/20/2022 [facility] 3:36 PM CDT LABORATORY-[facility] LABORATORY ALBUMIN 4.1 3.2 - 4.6 01/20/2022 [facility] g/dL 3:36 PM CDT LABORATORY-[facility] TRAL LABORATORY PROTEIN,TOTAL 7.0 6.0 - 8.0 01/20/2022 [facility] g/dL 3:36 PM CDT LABORATORY-[facility]A TRAL LABORATORY GLOBULIN 2.9 2.0 - 3.7 01/20/2022 [facility] g/dL 3:36 PM CDT LABORATORY-[facility] TRAL LABORATORY A/G RATIO 1.4 1.0 - 2.0 01/20/2022 [facility] 3:36 PM CDT LABORATORY-[facility]A TRAL LABORATORY BILIRUBIN,TOTAL 0.5 0.2 - 1.2 01/20/2022 [facility] mg/dL 3:36 PM CDT LABORATORY-THA TRAL LABORATORY ALK PHOSPHATASE 145 (H) 50 - 136 01/20/2022 [facility] IU/L 3:36 PM CDT LABORATORY-[facility]AL LABORATORY ALT (SGPT) 29 8 - 45 01/20/2022 [facility] IU/L 3:36 PM CDT LABORATORY-[facility] LABORATORY AST (SGOT) 28 2 - 40 01/20/2022 [facility] IU/L 3:36 PM CDT LABORATORY-[facility] LABORATORY eGFR 82 (L) >90 01/20/2022 [facility] mL/min/1.7 3:36 PM CDT LABORATORY-THA 3m2 TRAL LABORATORY Comment: As of 2021, eGFR is calcu lated by the CKD-EPI creatinine equation without race adjustment. eGFR can be inf luenced by muscle mass, exercise, and diet. The reported eGFR is an estimation only and is only applicable if the renal function is stable. Specimen Anatomical Collection Method / Collection Time Recei urbano Time (Source) Location / Volume Laterality Blood BLOOD SPECIMEN / Venipuncture / 01/19/2022 3:30 2021 3:30 Unknown Unknown PM CDT PM CDT Tayler Adler DO CHEMISTRY Performing Organization Address City/State/ZIP Code Phon e Number [facility] [address] [place] [address] LABORATORY-CENTRAL 2000 LABORATORY SCAN-EYE EXAM (01/18/2022 12:00 AM CDT) Narrative This result has an attachment that is no t available. Scanner OTHER from Last 3 Months Insurance Payer Benefit Plan / Subscriber ID Effective Dates Phone Addre ss Type Group THIRD [employer]AT TPL THIRD DEMO[employer]AT [id number] 2016-Presen PAYOR PAYER t MEDICA [place] MEDICA [id number] 2021-Presen [address] [place] [address] Elvia Fox Third [employer] Party Self 1960 [phone] (Home) [phone] (Work) [place] [address] Advance Directives Documents on File Type Date Recorded Patient Diabetes Educator Explanati on POLST 09/10/2020 Latest Code Status on File Code Status Date Activated Date Inactivated Comments Full Code 07/28/2018 7:14 AM 07/28/2018 1:10 PM Full Code 02/24/2018 7:40 AM 02/24/2018 12:14 PM Care Teams Parts Finisher Relationship Specialty Start Date End Date Tayler Adler DO PCP - General Family Practice 05/14/17 [address] [place] [address]
== END 2022-04-14 20:26 | disposition home or self-care (01) ==
LOC: ED 20:21
PROVIDERS: Emergency Provider Family Medicine
DX: S30.851A Superficial foreign body of abdominal wall, initial encounter (principal); W45.8XXA Other foreign body or object entering through skin, initial encounter; E11.8 Type 2 diabetes mellitus with unspecified complications; Z79.4 Long term (current) use of insulin
CPT/HCPCS: 99282; 99283

== ENCOUNTER 2022-06-29 14:36 | Emergency (ER) | payer OTHER, SELFPAY ==
[2022-06-29 14:45] VITALS: BP 145/69; PULSE 90; RESP 18; O2SAT 99; BMI 24.4
--- NOTE | 2022-06-29 14:53 | CRLHL7_ITS ---
For Patients: As a result of the Cures Act, medical imaging exams and procedure reports are released immediately into your electronic medical record. You may view this report before your referring provider. If you have questions, please contact your health care provider. Indication: Trauma. Technique: Right 3rd digit, 3 views. Comparison: None. Findings/Impression: Bones: Acute mildly displaced comminuted fracture of the 3rd digit distal phalanx. Joint spaces: Unremarkable. Soft tissues: Soft tissue swelling. Dictated by Isma Mason MD @ 06/29/2022 4:18:33 PM (Electronically Signed)
--- NOTE | 2022-06-29 16:11 | ED.GENADULT ---
HPI - General Adult General Time Seen by Provider: 16:12 Date Seen: 06/29/22 Chief complaint: Extremity Pain/Injury, Upper Stated complaint: Middle right finger injury Time Seen by Provider: 06/29/22 16:04 Source: patient Mode of arrival: ambulatory Limitations: no limitations History of Present Illness HPI narrative: Patient is a 62 year white male diabetic who is the independent living person but has a state worker come with him today. He has caught his right long finger in the car door and was concerned might be broken. It has oozed a little bit over the last couple of days. His blood sugars been 145. The patient feels like it might be getting infected. It has been tender and painful. He believes he is up-to-date on tetanus Related Data Previous Rx's Medication Instructions Recorded cephalexin 500 mg capsule 500 mg PO QID #20 caps 06/29/22 Allergies Allergy/AdvReac Type Severity Reaction Status Date / Time walnut Allergy Anaphylaxis Verified 06/29/22 14:45 prednisone AdvReac Intermediate elevated Verified 06/29/22 14:45 blood sugar Review of Systems Narrative: Negative for significant infections, finger injuries, other issues [facility] Social History Smoking Status: Current every day smoker What tobacco products do you use: cigars Do you use any of these nicotine containing products: None Second hand tobacco smoke exposure: No How often do you have a drink containing alcohol: never AUDIT-C Alcohol total score: 0 Non-prescribed substance use: denies use service: No Exam Narrative: Exam Narrative: Objective right 3rd finger shows bruising on the volar surface of the distal phalanx he has got some slight angulation in flexion at the D IP he has avulsed most of the skin around the nail bed so the nail is basically just sitting there with clotting around it and eschar around it. There is no marked cellulitic change or says drainage. Const: Vital Signs, click to edit/add: Vital Signs - 24 hr 06/29/22 14:45 Pulse Rate [Pulse Oximeter] 90 Respiratory Rate 18 Blood Pressure [Ri ght Forearm] 145/69 H Pulse Oximetry 99 Oxygen Delivery Me thod Room Air Course Vital Signs Vital signs: Initial Vital Signs Temperature Source Temporal Artery Scan 06/29/22 14:45 Pulse Rate 90 06/29/22 14:45 Pulse Rhythm 06/29/22 14:45 Respiratory Rate 18 06/29/22 14:45 Blood Pressure 145/69 H 06/29/22 14:45 Blood Pressure Mean 94 06/29/22 14:45 Blood Pressure Position Sitting 06/29/22 14:45 Pulse Oximetry 99 06/29/22 14:45 Oxygen Delivery Method 06/29/22 14:45 Vital Signs Pulse Rate 90 06/29/22 14:45 Respiratory Rate 18 06/29/22 14:45 Blood Pressure 145/69 H 06/29/22 14:45 Pulse Oximetry 99 06/29/22 14:45 Oxygen Delivery Method 06/29/22 14:45 Pulse Rate 90 06/29/22 14:45 Respiratory Rate 18 06/29/22 14:45 Blood Pressure 145/69 H 06/29/22 14:45 Pulse Oximetry 99 06/29/22 14:45 Oxygen Delivery Method 06/29/22 14:45 Medical Decision Making MDM Narrative Medical decision making narrative: Patient has a distal finger phalanx fracture by my read of his x-ray, it is volarly angulated slightly. Will soak the finger will start him on Keflex 500 q.i.d. x5 days. I think given this is several days since this happened he needs an Ortho follow-up appointment for reassessment on this will be set up. He may lose his nail, but I think he needs antibiotics, coverage tonight and then he may soak it couple times a day over the next couple of days, cover with a bandage. Will make ortho appointment for him. Keflex orally x5 days Discharge Plan Discharge Clinical Impression: Fracture of distal phalanx of finger, Injury of nail bed of finger Patient Disposition: Home w/ Parent or Adult Condition: Stable Additional Instructions: Keep covered for 48 hours, then may soak twice a day in soapy water, Keflex 500 q.i.d. x5 days, orthopedic followup as described. Light light use of the right hand Activity Level: Light activity Discharge Diet: Diabetic Prescriptions: New cephalexin 500 mg capsule 500 mg PO QID Qty: 20 0RF Follow Up/Referrals: Provider,Not a Local [Primary Care Provider] - Stand Alone [facility] Instructions
== END 2022-06-29 16:45 | disposition home or self-care (01) ==
PROVIDERS: Emergency Provider Family Medicine
DX: S62.662A Nondisplaced fracture of distal phalanx of right middle finger, initial encounter for closed fracture (principal); W23.0XXA Caught, crushed, jammed, or pinched between moving objects, initial encounter
CPT/HCPCS: 73140; 99283

== ENCOUNTER 2022-07-31 21:46 | Emergency (ER) | payer OTHER, SELFPAY ==
[2022-07-31 21:51] VITALS: BP 188/95; PULSE 89; RESP 18; TEMP 36.8; O2SAT 99; BMI 24.9
--- NOTE | 2022-07-31 22:01 | ED_ITS ---
HPI - Nausea/Vomiting/Diarrhea General Chief complaint: Nausea/Vomiting Stated complaint: nausea Time Seen by Provider: 07/31/22 21:50 History of Present Illness HPI Narrative: Pt is a 62 year old insulin dependent diabetic who presents with a single episode of vomiting tonight. Pt took his usual 6 units of lantus this evening and then vomited his supper which included [employer]. Pt had no blood in the vomitus. No fever or chills. Pt has no abd or chest pain no diarrhea. Pt has only mild nausea at this point. Pt has been feeling fine with no other symptoms. Pt is concerned that his blood sugar will be too low as he vomited his supper. His blood sugar is currently 218. Related Data Home Medications Medication Instructions Recorded Confirmed alprazolam 0.25 mg tablet 0.25 mg PO 06/30/22 06/30/22 aspirin 81 mg tablet,delayed 81 mg PO 06/30/22 06/30/22 release atorvastatin 80 mg tablet 80 mg PO 06/30/22 06/30/22 blood sugar diagnostic (Accu-Chek #10 ea 06/30/22 06/30/22 Siria Plus test strips) blood-glucose sensor (Dexcom G6 #1 ea 06/30/22 06/30/22 Sensor device) blood-glucose transmitter (Dexcom #1 ea 06/30/22 06/30/22 G6 Transmitter device) calcium carb 333 mg-vit D3 133 tab PO 06/30/22 06/30/22 unit-mag ox 133 mg-zinc oxide 5 mg tab ([place]ong Mag Zinc Plus D3) cholecalciferol (vitamin D3) 125 125 mcg PO 06/30/22 06/30/22 mcg (5,000 unit) capsule cyclobenzaprine 10 mg tablet 10 mg PO 06/30/22 06/30/22 diltiazem HCl 120 mg cap PO 06/30/22 06/30/22 capsule,extended release 24 hr docusate sodium 100 mg capsule cap PO 06/30/22 06/30/22 donepezil 5 mg tablet 5 mg PO 06/30/22 06/30/22 duloxetine 20 mg capsule,delayed cap PO 06/30/22 06/30/22 release escitalopram oxalate 10 mg tablet 10 mg PO 06/30/22 06/30/22 fentanyl 50 mcg/hr transdermal 1 patch transdermal 06/30/22 06/30/22 patch gabapentin 100 mg capsule 100 mg PO 06/30/22 06/30/22 hydrocodone 7.5 mg-ibuprofen 200 1 tab PO 06/30/22 06/30/22 mg tablet hydrocortisone 2.5 % topical cream g topical 06/30/22 06/30/22 hydromorphone 2 mg tablet 2 mg PO 06/30/22 06/30/22 hydroxyzine HCl 25 mg tablet 25 mg PO 06/30/22 06/30/22 ibuprofen 600 mg tablet 600 mg PO 06/30/22 06/30/22 insulin aspart U-100 100 unit/mL subcut 06/30/22 06/30/22 (3 mL) subcutaneous pen insulin glargine 100 unit/mL (3 ml subcut 06/30/22 06/30/22 mL) subcutaneous pen (Lantus Solostar U-100 Insulin) levothyroxine 100 mcg tablet 100 mcg PO 06/30/22 06/30/22 levothyroxine 88 mcg tablet 88 mcg PO 06/30/22 06/30/22 meclizine 25 mg tablet 25 mg PO 06/30/22 06/30/22 memantine 5 mg tablet 5 mg PO 06/30/22 06/30/22 metoclopramide HCl 5 mg tablet 5 mg PO 06/30/22 06/30/22 multivitamin-ferrous tab PO 06/30/22 06/30/22 fumarate-folic acid 18 mg-400 mcg tablet (Certavite-Antioxidant) naloxone 4 mg/actuation nasal spray spray intranasal 06/30/22 06/30/22 ondansetron HCl 4 mg tablet 4 mg PO 06/30/22 06/30/22 oxycodone 5 mg tablet 5 mg PO 06/30/22 06/30/22 pen needle, diabetic 31 gauge x #1,200 ea 06/30/22 06/30/2211/24 (BD Ultra-Fine Short Pen Needle) risperidone 0.5 mg tablet 0.5 mg PO 06/30/22 06/30/22 risperidone 1 mg tablet 1 mg PO 06/30/22 06/30/22 risperidone 3 mg tablet 3 mg PO 06/30/22 06/30/22 simvastatin 20 mg tablet 20 mg PO 06/30/22 06/30/22 tamsulosin 0.4 mg capsule cap PO 06/30/22 06/30/22 Previous Rx's Medication Instructions Recorded cephalexin 500 mg capsule 500 mg PO QID #20 caps 06/29/22 Allergies Allergy/AdvReac Type Severity Reaction Status Date / Time walnut Allergy Severe Anaphylaxis Verified 07/31/22 22:29 acetaminophen Allergy Mild Messes Verified 07/31/22 22:29 With DEXCOM Review of Systems Status of ROS: Reports: 10 or more systems reviewed and unremarkable except as noted in History and below [facility] Medical History (Updated 07/31/22 @ 23:01 by Jairo Culp MD) IDDM (insulin dependent diabetes mellitus) Parkinsons disease Social History Smoking Status: Current every day smoker What tobacco products do you use: cigars Do you use any of these nicotine containing products: None Second hand tobacco smoke exposure: No How often do you have a drink containing alcohol: never AUDIT-C Alcohol total score: 0 Non-prescribed substance use: denies use service: No Exam Narrative: Exam Narrative: EXAM GENERAL: Patient appears comfortable and well. EYES: No scleral icterus. THYROID: no thyroid nodules or thyromegaly. LYMPH: No supraclavicular or cervical lymphadenopathy. SKIN: Visible skin seen during exam normal or with benign process only. EXT: No dependent lower extremity pedal edema. HEART: Regular rate and rhythm with no murmurs, rubs, or gallops. LUNGS: Clear to auscultation bilaterally with no crackles or wheezes. ABD: Soft, non tender, non distended. PSYCH: Good eye contact, speech is not pressured. Const: Vital Signs, click to edit/add: Vital Signs - 24 hr 07/31/22 21:51 07/31/22 22:05 07/31/22 22:43 Temperature 98.2 F Pulse Rate [Left P ulse Oximeter] 89 74 Respiratory Rate 18 16 Blood Pressure [Ri ght Upper Arm] 188/95 H 195/85 H Pulse Oximetry 99 90 90 Oxygen Delivery Me thod Room Air Room Air Course Course Hospital Course: Pt seen and examined. Pt given 500 cc saline bolus with 4 mg of IV Zofran. CBC, BMP pending. Reevaluation(s) Reevaluation #1: Pt feeling better after saline and zofran. CBC BMP unremarkable upon my review. Vital Signs Vital signs: Initial Vital Signs Temperature 98.2 F 07/31/22 21:51 Temperature Source Temporal Artery Scan 07/31/22 21:51 Pulse Rate 89 07/31/22 21:51 Respiratory Rate 18 07/31/22 21:51 Blood Pressure 188/95 H 07/31/22 21:51 Blood Pressure Mean 126 07/31/22 21:51 Blood Pressure Position Supine 07/31/22 21:51 Pulse Oximetry 99 07/31/22 21:51 Oxygen Delivery Method 07/31/22 21:51 Vital Signs Temperature 98.2 F 07/31/22 21:51 Pulse Rate 89 07/31/22 21:51 Respiratory Rate 18 07/31/22 21:51 Blood Pressure 188/95 H 07/31/22 21:51 Pulse Oximetry 99 07/31/22 21:51 Oxygen Delivery Method 07/31/22 21:51 Temperature 98.2 F 07/31/22 21:51 Pulse Rate 74 07/31/22 22:43 Respiratory Rate 16 07/31/22 22:43 Blood Pressure 195/85 H 07/31/22 22:43 Pulse Oximetry 90 07/31/22 22:43 Oxygen Delivery Method 07/31/22 22:43 MDM - Nausea/Vomiting/Diarrhea MDM Narrative Medical decision making narrative: Pt is a 62 year old gentleman who was brought in by ambulance tonight as he vomited his supper. Pt was concerned that his blood sugar was low as he took his evening dose of Lantus prior to vomiting. Blood sugar was stable on two occasions once with EMS and once with us here in the ED. Pt given fluids and zofran. Labs stable. Pt had Zofran placed in instymeds and can be discharged to home to advance his diet as tolerated and continue his outpt medications. Differential Diagnosis Differential diagnosis: Likely food poisoning, gastroenteritis, drug-induced nausea and vomiting and dehydration Lab Data Labs: Lab Results 07/31/22 07/31/22 Range/Units 22:04 22:04 WBC 8.32 (4.50-11.00) K/uL RBC 3.78 L (4.30-5.90) m/uL Hgb 12.9 L (13.5-17.5) gm/dL Hct 37.2 (37.0-53.0) % MCV 98 (80-100) fL MCH 34 (26-34) pg MCHC 35 (32-36) gm/dL RDW Coeff of Jayjay 12.3 (11.5-15.5) % Plt Count 251 (140-440) K/uL Neut % (Auto) 80.9 H (42.0-72.0) % Lymph % (Auto) 12.6 L (20-44) % [place] % (Auto) 5.0 (0.0-11.0) % Eos % (Auto) 0.8 (0.0-7.0) % Baso % (Auto) 0.6 (0.0-3.0) % Neut # (Auto) 6.70 (1.7-7.0) K/uL Lymph # (Auto) 1.00 (0.90-2.90) K/uL [place] # (Auto) 0.40 (0.00-0.90) K/UL Eos # (Auto) 0.07 (0.00-0.50) K/uL Baso # (Auto) 0.05 (0.00-0.30) K/uL Sodium 137 (135-149) mmol/L Potassium 4.6 (3.6-5.1) mmol/L Chloride 103 (96-114) mmol/L Carbon Dioxide 30 (20-32) mmol/L BUN 17 (7-30) mg/dL Creatinine 0.7 (0.5-1.5) mg/dL Estimated Creat Clear 62.49 Estimated GFR 103 ml/min Glucose 172 H (60-115) mg/dL Calcium 9.0 (8.4-10.6) mg/dL Discharge Plan Discharge Clinical Impression: Vomiting Condition: Stable Instructions: Gastroenteritis (ED) Activity Level: No Restrictions Discharge Diet: Regular Prescriptions: No Action ondansetron HCl 4 mg tablet 4 mg PO levothyroxine 88 mcg tablet 88 mcg PO meclizine 25 mg tablet 25 mg PO (DME) Dexcom G6 Transmitter Device See Rx Instructions .ROUTE .MEDSUPPLY Qty: 1 Rx Instructions: As directed Certavite-Antioxidant 18-400 mg-mcg tablet PO duloxetine 20 mg capsule,delayed release(DR/EC) PO memantine 5 mg tablet 5 mg PO escitalopram oxalate 10 mg tablet 10 mg PO risperidone 0.5 mg tablet 0.5 mg PO risperidone 1 mg tablet 1 mg PO gabapentin 100 mg capsule 100 mg PO diltiazem HCl 120 mg capsule,extended release 24hr PO docusate sodium 100 mg capsule PO tamsulosin 0.4 mg capsule PO alprazolam 0.25 mg tablet 0.25 mg PO risperidone 3 mg tablet 3 mg PO aspirin 81 mg tablet,delayed release (DR/EC) 81 mg PO atorvastatin 80 mg tablet 80 mg PO fentanyl 50 mcg/hr patch 72 hour 1 patch transdermal (DME) pen needle, diabetic [BD Ultra-Fine Short Pen Needle] 31 gauge x 5/16 needle See Rx Instructions .ROUTE .MEDSUPPLY Qty: 1200 Label Comments: USE THREE TIMES DAILY BEFORE MEALS Rx Instructions: As directed insulin glargine [Lantus Solostar U-100 Insulin] 100 unit/mL (3 mL) insulin pen subcut Label Comments: INJECT 6 UNITS EVERY MORNING AND 5 UNITS EVERY EVENING hydrocodone-ibuprofen 7.5-200 mg tablet 1 tab PO (DME) Dexcom G6 Sensor Device See Rx Instructions .ROUTE .MEDSUPPLY Qty: 1 Rx Instructions: As directed insulin aspart U-100 100 unit/mL (3 mL) insulin pen subcut cyclobenzaprine 10 mg tablet 10 mg PO donepezil 5 mg tablet 5 mg PO oxycodone 5 mg tablet 5 mg PO naloxone 4 mg/actuation spray,non-aerosol intranasal (DME) Accu-Chek Siria Plus test strp Strip See Rx Instructions .ROUTE .MEDSUPPLY Qty: 10 Rx Instructions: As directed levothyroxine 100 mcg tablet 100 mcg PO ibuprofen 600 mg tablet 600 mg PO metoclopramide HCl 5 mg tablet 5 mg PO hydroxyzine HCl 25 mg tablet 25 mg PO hydrocortisone 2.5 % cream topical Label Comments: APPLY TO AFFECTED AREA(S) TWICE A DAY TO ITCHY AREA ON ANKLE simvastatin 20 mg tablet 20 mg PO hydromorphone 2 mg tablet 2 mg PO [place] Mag Zinc Plus D3 333 mg-133 unit -133 mg-5 mg tablet PO cholecalciferol (vitamin D3) 125 mcg (5,000 unit) capsule 125 mcg PO cephalexin 500 mg capsule 500 mg PO QID Qty: 20 0RF Follow Up/Referrals: Provider,Not a Local [Referring] - [facility]
[2022-07-31 22:05] VITALS: O2SAT 90
[2022-07-31] MEDS: 0.9 % SODIUM CHLORIDE 500 ML 500 ML IV (22:05)
[2022-07-31] MEDS: ONDANSETRON 2 MG/ML inj 4 MG IVP (22:05)
[2022-07-31 22:24] LABS: Basophils Absolute Auto 0.05 K/uL (0.00-0.30); Basophils Percent Auto 0.6 % (0.0-3.0); Eosinophils Absolute Auto 0.07 K/uL (0.00-0.50); Eosinophils Percent Auto 0.8 % (0.0-7.0); Hematocrit 37.2 % (37.0-53.0); Hemoglobin* 12.9 gm/dL (13.5-17.5); Immature Granulocytes Abs Auto 0.01 K/uL (0.00-0.30); Immature Granulocytes Pct Auto 0.1 %; Lymphocytes Percent Auto 12.6 % (20-44); Mean Corpuscular HGB Conc 35 gm/dL (32-36); Mean Corpuscular Hemoglobin 34 pg (26-34); Mean Corpuscular Volume 98 fL (80-100); Neutrophils Percent Auto 80.9 % (42.0-72.0); Platelet Count* 251 K/uL (140-440); RDW Coefficient of Variation % 12.3 % (11.5-15.5); Red Blood Count 3.78 m/uL (4.30-5.90); White Blood Count* 8.32 K/uL (4.50-11.00)
[2022-07-31 22:29] LABS: Slide Review Reflex No
[2022-07-31 22:39] LABS: Chloride* 103 mmol/L (96-114); Potassium* 4.6 mmol/L (3.6-5.1); Sodium* 137 mmol/L (135-149)
[2022-07-31 22:42] LABS: Carbon Dioxide* 30 mmol/L (20-32); Creatinine* 0.7 mg/dL (0.5-1.5); Est. Creatinine Clearance* 62.49; Estimated Glomerular Filt Rate 103 ml/min
[2022-07-31 22:43] VITALS: BP 195/85; PULSE 74; RESP 16; O2SAT 90
[2022-07-31 22:43] LABS: Blood Urea Nitrogen* 17 mg/dL (7-30); Glucose* 172 mg/dL (60-115)
== END 2022-07-31 23:39 | disposition home or self-care (01) ==
PROVIDERS: Emergency Provider Internal Medicine; PCP Family Medicine
DX: R11.10 Vomiting, unspecified (principal); E11.9 Type 2 diabetes mellitus without complications; Z79.4 Long term (current) use of insulin
CPT/HCPCS: 36415; 80048; 85025; 94761; 96374; 99283; A0425; A0429; J2405; J7120

== ENCOUNTER 2022-09-12 12:00 | Emergency (ER) | payer OTHER, SELFPAY ==
[2022-09-12 12:06] VITALS: BP 159/94; PULSE 89; RESP 18; TEMP 37.7; O2SAT 95
--- NOTE | 2022-09-12 12:10 | CRLHL7_ITS ---
For Patients: As a result of the Century Cures Act, medical imaging exams and procedure reports are released immediately into your electronic medical record. You may view this report before your referring provider. If you have questions, please contact your health care provider. INDICATION: Fall, right hip pain TECHNIQUE: X-ray right hip, two views and a single view of pelvis COMPARISON: None available FINDINGS: The alignment is. Negative for acute fracture or dislocation. The right femoral head is well formed seated within acetabulum. Mild diffuse osteopenia. Overlying soft tissues unremarkable. IMPRESSION: Negative for acute fracture or dislocation. Dictated by Melly Ralph MD @ 09/12/2022 1:18:53 PM Dictated by: Melly Ralph MD @ 09/12/2022 13:19:08 (Electronically Signed)
[2022-09-12 12:32] LABS: HCO3 VBG 31 mmol/L (21-28); Lactate* 1.6 mmol/L (0.5-1.9); PCO2 VBG 44 mmHG (40-50); PO2 VBG 46.3 mmHG (25-47); pH VBG 7.451 (7.32-7.43)
--- NOTE | 2022-09-12 12:32 | ED_ITS ---
HPI - General Adult General Date Seen: 09/12/22 Chief complaint: Hip Injury/Pain Stated complaint: Fall yesterday Time Seen by Provider: 09/12/22 12:09 Source: patient and EMS Mode of arrival: EMS Limitations: no limitations History of Present Illness HPI narrative: Patient is a 62-year-old male here via EMS with right hip and buttock pain after a fall last night. He tells me that he had fallen backwards, no loss of consciousness, denies head, neck, back, chest or abdominal pain. He has had pain in his right buttock and hip since last night. He says he was able to limp on it last night but this morning was not able to put any weight on it and called EMS. They reported they had to transport him down the stairs by chair transfer. He lives independently in an apartment on the 2nd floor. He is here with his case investigator. He has type 1 diabetes and uses a Dexcom as well as insulin. Apparently his blood sugars have been somewhat labile, were low earlier in the month and now have been running high. No reported illness, nausea vomiting diarrhea, chest pain, shortness of breath or other symptoms. Related Data Home Medications Medication Instructions Recorded Confirmed alprazolam 0.25 mg tablet 0.125 mg PO BID@09,14 06/30/22 09/12/22 aspirin 81 mg tablet,delayed 81 mg PO DAILY 06/30/22 09/12/22 release atorvastatin 80 mg tablet 80 mg PO HS 06/30/22 09/12/22 blood sugar diagnostic (Accu-Chek #10 ea 06/30/22 06/30/22 Siria Plus test strips) blood-glucose sensor (Dexcom G6 #1 ea 06/30/22 06/30/22 Sensor device) blood-glucose transmitter (Dexcom #1 ea 06/30/22 06/30/22 G6 Transmitter device) calcium carb 333 mg-vit D3 133 1 tab PO DAILY 06/30/22 09/12/22 unit-mag ox 133 mg-zinc oxide 5 mg tab (Kong Mag Zinc Plus D3) cholecalciferol (vitamin D3) 125 125 mcg PO DAILY 06/30/22 09/12/22 mcg (5,000 unit) capsule cyclobenzaprine 10 mg tablet 10 mg PO 06/30/22 06/30/22 docusate sodium 100 mg capsule cap PO 06/30/22 06/30/22 donepezil 5 mg tablet 5 mg PO 06/30/22 06/30/22 duloxetine 20 mg capsule,delayed 20 mg PO DAILY 06/30/22 09/12/22 release escitalopram oxalate 10 mg tablet 10 mg PO DAILY 06/30/22 09/12/22 fentanyl 50 mcg/hr transdermal 1 patch transdermal Q72H 06/30/22 09/12/22 patch gabapentin 100 mg capsule 100 mg PO TID 06/30/22 09/12/22 hydrocodone 7.5 mg-ibuprofen 200 1 tab PO 06/30/22 06/30/22 mg tablet hydrocortisone 2.5 % topical cream 1 applic topical BID PRN 06/30/22 09/12/22 hydromorphone 2 mg tablet 2 mg PO 06/30/22 06/30/22 hydroxyzine HCl 25 mg tablet 25 mg PO 06/30/22 06/30/22 ibuprofen 600 mg tablet 600 mg PO 06/30/22 06/30/22 insulin aspart U-100 100 unit/mL subcut 06/30/22 06/30/22 (3 mL) subcutaneous pen insulin glargine 100 unit/mL (3 5 - 6 unit subcut BID 06/30/22 09/12/22 mL) subcutaneous pen (Lantus Solostar U-100 Insulin) levothyroxine 100 mcg tablet 100 mcg PO 06/30/22 06/30/22 levothyroxine 88 mcg tablet 88 mcg PO DAILY 06/30/22 09/12/22 meclizine 25 mg tablet 25 mg PO TID PRN 06/30/22 09/12/22 memantine 5 mg tablet 5 - 10 mg PO BID 06/30/22 09/12/22 metoclopramide HCl 5 mg tablet 5 mg PO Q6H PRN nausea and vomiting 06/30/22 09/12/22 multivitamin-ferrous 1 tab PO DAILY 06/30/22 09/12/22 fumarate-folic acid 18 mg-400 mcg tablet (Certavite-Antioxidant) naloxone 4 mg/actuation nasal spray 1 spray intranasal . DIREC PRN 06/30/22 09/12/22 ondansetron HCl 4 mg tablet 4 mg PO 06/30/22 06/30/22 oxycodone 5 mg tablet 5 mg PO 06/30/22 06/30/22 pen needle, diabetic 31 gauge x #1,200 ea 06/30/22 06/30/22 5/16 (BD Ultra-Fine Short Pen Needle) risperidone 0.5 mg tablet 0.5 mg PO HS 06/30/22 09/12/22 risperidone 1 mg tablet 1 mg PO BID@09,14 06/30/22 09/12/22 risperidone 3 mg tablet 3 mg PO HS 06/30/22 09/12/22 tamsulosin 0.4 mg capsule 0.4 mg PO DAILY 06/30/22 09/12/22 alprazolam 0.25 mg tablet 0.25 mg PO HS 09/12/22 09/12/22 ascorbic acid (vitamin C) 1,000 mg 1 g PO DAILY 09/12/22 09/12/22 tablet (C-1000 with Erin Hips) diltiazem HCl 180 mg 180 mg PO DAILY 09/12/22 09/12/22 capsule,extended release 24 hr Previous Rx's Medication Instructions Recorded cephalexin 500 mg capsule 500 mg PO QID #20 caps 06/29/22 Allergies Allergy/AdvReac Type Severity Reaction Status Date / Time walnut Allergy Severe Anaphylaxis Verified 07/31/22 22:29 acetaminophen Allergy Mild Messes Verified 07/31/22 22:29 With DEXCOM Review of Systems Status of ROS: Reports: 10 or more systems reviewed and unremarkable except as noted in History and below [facility] Medical History Asthma, mild intermittent Bipolar 2 disorder BPH with urinary obstruction CAD (coronary artery disease) of bypass graft Controlled substance agreement signed Depression with anxiety Diabetes mellitus type 1 with complications Heart murmur Hypertension Hypothyroidism (acquired) IDDM (insulin dependent diabetes mellitus) Lumbar disc disease Memory loss Parkinsons disease Primary osteoarthritis of knees, bilateral PTSD (post-traumatic stress disorder) Surgical History H/O cataract extraction S/P CABG x 4 Social History Smoking Status: Current every day smoker What tobacco products do you use: cigars Do you use any of these nicotine containing products: None Second hand tobacco smoke exposure: No How often do you have a drink containing alcohol: never AUDIT-C Alcohol total score: 0 Non-prescribed substance use: denies use service: No Exam Narrative: Exam Narrative: Vital signs as noted above. In general, an alert, well-appearing patient. Looks comfortable. Head: Normocephalic, atraumatic. Eyes: Pupils are equal reactive. Extraocular movements are full. Conjunctivae are normal. ENT: Mucous membranes are moist. Throat is normal. Neck: Supple without lymphadenopathy. Nontender to palpation. Heart: Regular rate and rhythm. Systolic murmur heard best at the left sternal border, baseline per patient. Lungs: Clear bilaterally. No increased work of breathing, crackles or wheezes. Abdomen: Soft and nontender. No organomegaly. Extremities: Well perfused. Pulses not felt in either foot. No tenderness to palpation throughout the right lower extremity, which is held slightly flexed for comfort. Pain with internal external rotation of the right hip. Neurologic: Patient is alert and oriented to person and place. Speech is fluent. Face is symmetric. Moves all extremities equally. Affect: Normal. Skin: Warm and dry. Well perfused. Const: Vital Signs, click to edit/add: Vital Signs - 24 hr 09/12/22 12:06 09/12/22 14:08 Temperature 99.9 F H Pulse Rate [Left P ulse Oximeter] 89 83 Respiratory Rate 18 16 Blood Pressure [Ri ght Upper Arm] 159/94 H 154/71 H Pulse Oximetry 95 95 Oxygen Delivery Me thod Room Air Room Air Documenting provider has reviewed patient's vital signs: yes Course Course Hospital Course: An IV was established by the paramedics. We will get some labs here, an x- ray of the right hip and pelvis. Blood sugar per paramedics was 398. Labs here really fairly unremarkable. White blood cell count is 9.5, hemoglobin is 13.1. His electrolytes are normal, blood sugar here is 236, but blood gas shows no evidence of acidosis, in fact he is mildly alkalotic with a pH of 7.45 and a bicarb of 31. Lactate is normal at 1.6. LFTs are normal. Given the fairly unremarkable blood sugar, lack of acidosis, carbon dioxide of 30, I did not feel that the urinalysis was quite is important, I do not think ketoacidosis is likely. He was unable urinate while here. He had initially x-rays of the right hip which by my review were negative. Final radiology read was likewise negative. Given his initial report of inability to bear weight, I did do a CT scan of the right hip as well. I reviewed these images and did not see any evidence of fracture. Final radiology report was likewise negative aside from mild degenerative changes. He did request something for pain here, he normally takes Vicoprofen, 7.5 mg/200 mg, which we do not have on formulary. Therefore I gave him oxycodone 5 mg. Notably, he is on a number of narcotic medications as well as benzodiazepine and gabapentin. After negative imaging, we did have him get up and see how he felt walking around. Using his cane which is how he usually gets around, he was able to ambulate without any difficulty. He feels comfortable going home. I think his labs are reasonable. He can continue to work with his primary care doctor in terms of getting his blood sugars better regulated, but I do not see anything concerning today necessitating admission. Continue current medications. He apparently has an upcoming appointment with his pain specialist. Vital Signs Vital signs: Initial Vital Signs Temperature 99.9 F H 09/12/22 12:06 Temperature Source Temporal Artery Scan 09/12/22 12:06 Pulse Rate 89 09/12/22 12:06 Pulse Rhythm 09/12/22 12:06 Respiratory Rate 18 09/12/22 12:06 Blood Pressure 159/94 H 09/12/22 12:06 Blood Pressure Mean 115 09/12/22 12:06 Pulse Oximetry 95 09/12/22 12:06 Oxygen Delivery Method 09/12/22 12:06 Vital Signs Temperature 99.9 F H 09/12/22 12:06 Pulse Rate 89 09/12/22 12:06 Respiratory Rate 18 09/12/22 12:06 Blood Pressure 159/94 H 09/12/22 12:06 Pulse Oximetry 95 09/12/22 12:06 Oxygen Delivery Method 09/12/22 12:06 Temperature 99.9 F H 09/12/22 12:06 Pulse Rate 83 09/12/22 14:08 Respiratory Rate 16 09/12/22 14:08 Blood Pressure 154/71 H 09/12/22 14:08 Pulse Oximetry 95 09/12/22 14:08 Oxygen Delivery Method 09/12/22 14:08 Medical Decision Making Lab Data Labs: Lab Results 09/12/22 09/12/22 09/12/22 Range/Units 12:11 12:26 12:26 WBC 9.56 (4.50-11.00) K/uL RBC 3.81 L (4.30-5.90) m/uL Hgb 13.1 L (13.5-17.5) gm/dL Hct 37.8 (37.0-53.0) % MCV 99 (80-100) fL MCH 34 (26-34) pg MCHC 35 (32-36) gm/dL RDW Coeff of Jayjay 11.8 (11.5-15.5) % Plt Count 203 (140-440) K/uL Neut % (Auto) 76.1 H (42.0-72.0) % Lymph % (Auto) 14.4 L (20-44) % [place] % (Auto) 7.4 (0.0-11.0) % Eos % (Auto) 1.8 (0.0-7.0) % Baso % (Auto) 0.3 (0.0-3.0) % Neut # (Auto) 7.30 H (1.7-7.0) K/uL Lymph # (Auto) 1.40 (0.90-2.90) K/uL [place] # (Auto) 0.70 (0.00-0.90) K/UL Eos # (Auto) 0.17 (0.00-0.50) K/uL Baso # (Auto) 0.03 (0.00-0.30) K/uL VBG pH (7.32-7.43) VBG pCO2 (40-50) mmHG VBG pO2 (25-47) mmHG VBG HCO3 (21-28) mmol/L Sodium 133 L (135-149) mmol/L Potassium 4.3 (3.6-5.1) mmol/L Chloride 101 (96-114) mmol/L Carbon Dioxide 30 (20-32) mmol/L BUN 23 (7-30) mg/dL Creatinine 0.7 (0.5-1.5) mg/dL Estimated GFR 103 ml/min Glucose 236 H (60-115) mg/dL Lactate (0.5-1.9) mmol/L Calcium 9.3 (8.4-10.6) mg/dL Total Bilirubin 0.6 (0.1-1.5) mg/dL Direct Bilirubin 0.3 (0.0-0.5) mg/dL AST 33 (12-35) U/L ALT 24 (4-50) U/L Alkaline Phosphatase 136 (40-150) U/L Total Protein 6.8 (6.0-8.3) g/dL Albumin 3.9 (3.3-5.0) g/dL SARS-CoV-2 (PCR) Negative SARS-CoV-2 (Negative) 09/12/22 Range/Units 12:26 WBC (4.50-11.00) K/uL RBC (4.30-5.90) m/uL Hgb (13.5-17.5) gm/dL Hct (37.0-53.0) % MCV (80-100) fL MCH (26-34) pg MCHC (32-36) gm/dL RDW Coeff of Jayjay (11.5-15.5) % Plt Count (140-440) K/uL Neut % (Auto) (42.0-72.0) % Lymph % (Auto) (20-44) % [place] % (Auto) (0.0-11.0) % Eos % (Auto) (0.0-7.0) % Baso % (Auto) (0.0-3.0) % Neut # (Auto) (1.7-7.0) K/uL Lymph # (Auto) (0.90-2.90) K/uL [place] # (Auto) (0.00-0.90) K/UL Eos # (Auto) (0.00-0.50) K/uL Baso # (Auto) (0.00-0.30) K/uL VBG pH 7.451 H (7.32-7.43) VBG pCO2 44 (40-50) mmHG VBG pO2 46.3 (25-47) mmHG VBG HCO3 31 H (21-28) mmol/L Sodium (135-149) mmol/L Potassium (3.6-5.1) mmol/L Chloride (96-114) mmol/L Carbon Dioxide (20-32) mmol/L BUN (7-30) mg/dL Creatinine (0.5-1.5) mg/dL Estimated GFR ml/min Glucose (60-115) mg/dL Lactate 1.6 (0.5-1.9) mmol/L Calcium (8.4-10.6) mg/dL Total Bilirubin (0.1-1.5) mg/dL Direct Bilirubin (0.0-0.5) mg/dL AST (12-35) U/L ALT (4-50) U/L Alkaline Phosphatase (40-150) U/L Total Protein (6.0-8.3) g/dL Albumin (3.3-5.0) g/dL SARS-CoV-2 (PCR) (Negative) Discharge Plan Discharge Clinical Impression: Contusion of right hip Patient Disposition: Home, Self-Care Condition: Improved Instructions: Hip Contusion (ED) Additional Instructions: Continue your current medications, you can use ice to the area as needed. Follow-up with your doctors as planned. Prescriptions: No Action ondansetron HCl 4 mg tablet 4 mg PO levothyroxine 88 mcg tablet 88 mcg PO DAILY meclizine 25 mg tablet 25 mg PO TID PRN (DME) Cytosorbents G6 Transmitter Device See Rx Instructions .ROUTE .MEDSUPPLY Qty: 1 Rx Instructions: As directed Certavite-Antioxidant 18-400 mg-mcg tablet 1 tab PO DAILY duloxetine 20 mg capsule,delayed release(DR/EC) 20 mg PO DAILY memantine 5 mg tablet 5 - 10 mg PO BID Rx Instructions: 10 MG (2 TABS) IN AM AND 5 MG (1 TAB) IN PM escitalopram oxalate 10 mg tablet 10 mg PO DAILY risperidone 0.5 mg tablet 0.5 mg PO HS Rx Instructions: TOTAL 3.5 MG AT HS risperidone 1 mg tablet 1 mg PO BID@09,14 gabapentin 100 mg capsule 100 mg PO TID docusate sodium 100 mg capsule PO tamsulosin 0.4 mg capsule 0.4 mg PO DAILY alprazolam 0.25 mg tablet 0.125 mg PO BID@09,14 risperidone 3 mg tablet 3 mg PO HS Rx Instructions: 3.5 MG TOTAL AT HS aspirin 81 mg tablet,delayed release (DR/EC) 81 mg PO DAILY atorvastatin 80 mg tablet 80 mg PO HS fentanyl 50 mcg/hr patch 72 hour 1 patch transdermal Q72H (DME) pen needle, diabetic [BD Ultra-Fine Short Pen Needle] 31 gauge x 5/16 needle See Rx Instructions .ROUTE .MEDSUPPLY Qty: 1200 Label Comments: USE THREE TIMES DAILY BEFORE MEALS Rx Instructions: As directed insulin glargine [Lantus Solostar U-100 Insulin] 100 unit/mL (3 mL) insulin pen 5 - 6 unit subcut BID Label Comments: INJECT 6 UNITS EVERY MORNING AND 5 UNITS EVERY EVENING hydrocodone-ibuprofen 7.5-200 mg tablet 1 tab PO (DME) Dexcom G6 Sensor Device See Rx Instructions .ROUTE .MEDSUPPLY Qty: 1 Rx Instructions: As directed insulin aspart U-100 100 unit/mL (3 mL) insulin pen subcut cyclobenzaprine 10 mg tablet 10 mg PO donepezil 5 mg tablet 5 mg PO oxycodone 5 mg tablet 5 mg PO naloxone 4 mg/actuation spray,non-aerosol 1 spray intranasal . DIREC PRN Rx Instructions: FOR RR LESS THAN 8/MIN (DME) Accu-Chek Siria Plus test strp Strip See Rx Instructions .ROUTE .MEDSUPPLY Qty: 10 Rx Instructions: As directed levothyroxine 100 mcg tablet 100 mcg PO ibuprofen 600 mg tablet 600 mg PO metoclopramide HCl 5 mg tablet 5 mg PO Q6H PRN (Reason: nausea and vomiting) hydroxyzine HCl 25 mg tablet 25 mg PO hydrocortisone 2.5 % cream 1 applic topical BID PRN Label Comments: APPLY TO AFFECTED AREA(S) TWICE A DAY TO ITCHY AREA ON ANKLE hydromorphone 2 mg tablet 2 mg PO [place] Mag Zinc Plus D3 333 mg-133 unit -133 mg-5 mg tablet 1 tab PO DAILY cholecalciferol (vitamin D3) 125 mcg (5,000 unit) capsule 125 mcg PO DAILY alprazolam 0.25 mg tablet 0.25 mg PO HS ascorbic acid (vitamin C) [C-1000 with Erin Hips] 1,000 mg tablet 1 g PO DAILY diltiazem HCl 180 mg capsule,extended release 24hr 180 mg PO DAILY cephalexin 500 mg capsule 500 mg PO QID Qty: 20 0RF Follow Up/Referrals: Tayler Adler DO [Primary Care Provider] - Stand Alone Forms: [facility] Info Instructions
[2022-09-12 12:36] LABS: Basophils Absolute Auto 0.03 K/uL (0.00-0.30); Basophils Percent Auto 0.3 % (0.0-3.0); Eosinophils Absolute Auto 0.17 K/uL (0.00-0.50); Eosinophils Percent Auto 1.8 % (0.0-7.0); Hematocrit 37.8 % (37.0-53.0); Hemoglobin* 13.1 gm/dL (13.5-17.5); Lymphocytes Percent Auto 14.4 % (20-44); Mean Corpuscular HGB Conc 35 gm/dL (32-36); Mean Corpuscular Hemoglobin 34 pg (26-34); Mean Corpuscular Volume 99 fL (80-100); Monocytes Percent Auto 7.4 % (0.0-11.0); Neutrophils Percent Auto 76.1 % (42.0-72.0); Platelet Count* 203 K/uL (140-440); RDW Coefficient of Variation % 11.8 % (11.5-15.5); Red Blood Count 3.81 m/uL (4.30-5.90); White Blood Count* 9.56 K/uL (4.50-11.00)
[2022-09-12 12:37] LABS: Slide Review Reflex No
[2022-09-12 12:50] LABS: Albumin* 3.9 g/dL (3.3-5.0); Chloride* 101 mmol/L (96-114)
[2022-09-12 12:51] LABS: Potassium* 4.3 mmol/L (3.6-5.1); Sodium* 133 mmol/L (135-149)
[2022-09-12 12:53] LABS: Aspartate Amino Transferase* 33 U/L (12-35); Bilirubin Direct* 0.3 mg/dL (0.0-0.5); Bilirubin Total* 0.6 mg/dL (0.1-1.5); Carbon Dioxide* 30 mmol/L (20-32); Creatinine* 0.7 mg/dL (0.5-1.5); Estimated Glomerular Filt Rate 103 ml/min; Total Protein* 6.8 g/dL (6.0-8.3)
--- NOTE | 2022-09-12 12:53 | CRLHL7_ITS ---
For Patients: As a result of the Century Cures Act, medical imaging exams and procedure reports are released immediately into your electronic medical record. You may view this report before your referring provider. If you have questions, please contact your health care provider. HISTORY: Fall. Right hip pain. TECHNIQUE: Noncontrast CT of the right hip. COMPARISON: Radiographs 09/12/2022. FINDINGS: There is no acute pelvic or proximal femoral fracture. There are mild degenerative changes of the hips. Degenerative changes of the sacroiliac joints. No localized fluid collection or space-occupying hematoma. IMPRESSION: 1. No acute pelvic or proximal femoral fracture. 2. Mild degenerative changes of the right hip. Dictated by Onesimo Blair MD @ 09/12/2022 1:51:34 PM Please note that all CT scans at this facility use dose modulation, iterative reconstruction, and/or weight-based dosing when appropriate to reduce radiation dose to as low as reasonably achievable. Dictated by: Onesimo Blair MD @ 09/12/2022 13:51:45 (Electronically Signed)
[2022-09-12 12:54] LABS: Alanine Aminotransferase* 24 U/L (4-50); Alkaline Phosphatase* 136 U/L (40-150); Blood Urea Nitrogen* 23 mg/dL (7-30); Calcium* 9.3 mg/dL (8.4-10.6); Glucose* 236 mg/dL (60-115)
--- NOTE | 2022-09-12 13:18 | ED.NURSE ---
House sup given heads up
[2022-09-12] MEDS: OXYCODONE 5 MG TABLET PO (13:26)
[2022-09-12 13:27] LABS: SARS PCR* Negative SARS-CoV-2 (Negative)
[2022-09-12 14:08] VITALS: BP 154/71; PULSE 83; RESP 16; O2SAT 95
--- NOTE | 2022-09-12 14:17 | ED.NURSE ---
pt ambulated well with cane, pain rated 6/10. pt states this is his normal level of pain. no complaints while walking with cane.
== END 2022-09-12 14:42 | disposition home or self-care (01) ==
PROVIDERS: Emergency Provider Emergency Medicine; PCP Family Medicine
DX: S70.01XA Contusion of right hip, initial encounter (principal); W19.XXXA Unspecified fall, initial encounter
CPT/HCPCS: 36415; 73502; 73700; 80048; 80076; 81001; 82803; 83605; 85025; 87635; 99284; 99285; A0425; A0427; A9270

== ENCOUNTER 2023-03-11 16:35 | Emergency (ER) | payer OTHER, SELFPAY ==
--- NOTE | 2023-03-11 17:07 | ED.GENADULT ---
HPI - General Adult General Time Seen by Provider: 17:07 Date Seen: 03/11/23 Stated complaint: Needs port removed Time Seen by Provider: 03/11/23 17:00 Source: patient Mode of arrival: ambulatory Limitations: no limitations History of Present Illness HPI narrative: patient is a 63-year-old male here to have his port the excess. States he went to his doctor's office today in clinic without he was going to get some fluids are lab work so he at the port accessed. He is post have PD access before he left but after speaking to his doctor he he forgot in left before hand. Patient just wants his port de accessed. No other complaints. Related Data Home Medications Medication Instructions Recorded Confirmed alprazolam 0.25 mg tablet 0.125 mg PO BID@09,14 06/30/22 09/12/22 aspirin 81 mg tablet,delayed 81 mg PO DAILY 06/30/22 09/12/22 release atorvastatin 80 mg tablet 80 mg PO HS 06/30/22 09/12/22 blood sugar diagnostic (Accu-Chek #10 ea 06/30/22 06/30/22 Siria Plus test strips) blood-glucose sensor (Dexcom G6 #1 ea 06/30/22 06/30/22 Sensor device) blood-glucose transmitter (Dexcom #1 ea 06/30/22 06/30/22 G6 Transmitter device) calcium carb 333 mg-vit D3 133 1 tab PO DAILY 06/30/22 09/12/22 unit-mag ox 133 mg-zinc oxide 5 mg tab ([place] Mag Zinc Plus D3) cholecalciferol (vitamin D3) 125 125 mcg PO DAILY 06/30/22 09/12/22 mcg (5,000 unit) capsule cyclobenzaprine 10 mg tablet 10 mg PO 06/30/22 06/30/22 docusate sodium 100 mg capsule cap PO 06/30/22 06/30/22 donepezil 5 mg tablet 5 mg PO 06/30/22 06/30/22 duloxetine 20 mg capsule,delayed 20 mg PO DAILY 06/30/22 09/12/22 release escitalopram oxalate 10 mg tablet 10 mg PO DAILY 06/30/22 09/12/22 fentanyl 50 mcg/hr transdermal 1 patch transdermal Q72H 06/30/22 09/12/22 patch gabapentin 100 mg capsule 100 mg PO TID 06/30/22 09/12/22 hydrocodone 7.5 mg-ibuprofen 200 1 tab PO 06/30/22 06/30/22 mg tablet hydrocortisone 2.5 % topical cream 1 applic topical BID PRN 06/30/22 09/12/22 hydromorphone 2 mg tablet 2 mg PO 06/30/22 06/30/22 hydroxyzine HCl 25 mg tablet 25 mg PO 06/30/22 06/30/22 ibuprofen 600 mg tablet 600 mg PO 06/30/22 06/30/22 insulin aspart U-100 100 unit/mL subcut 06/30/22 06/30/22 (3 mL) subcutaneous pen insulin glargine 100 unit/mL (3 5 - 6 unit subcut BID 06/30/22 09/12/22 mL) subcutaneous pen (Lantus Solostar U-100 Insulin) levothyroxine 100 mcg tablet 100 mcg PO 06/30/22 06/30/22 levothyroxine 88 mcg tablet 88 mcg PO DAILY 06/30/22 09/12/22 meclizine 25 mg tablet 25 mg PO TID PRN 06/30/22 09/12/22 memantine 5 mg tablet 5 - 10 mg PO BID 06/30/22 09/12/22 metoclopramide HCl 5 mg tablet 5 mg PO Q6H PRN nausea and vomiting 06/30/22 09/12/22 multivitamin-ferrous 1 tab PO DAILY 06/30/22 09/12/22 fumarate-folic acid 18 mg-400 mcg tablet (Certavite-Antioxidant) naloxone 4 mg/actuation nasal spray 1 spray intranasal . DIREC PRN 06/30/22 09/12/22 ondansetron HCl 4 mg tablet 4 mg PO 06/30/22 06/30/22 oxycodone 5 mg tablet 5 mg PO 06/30/22 06/30/22 pen needle, diabetic 31 gauge x #1,200 ea 06/30/22 06/30/2211/24 (BD Ultra-Fine Short Pen Needle) risperidone 0.5 mg tablet 0.5 mg PO HS 06/30/22 09/12/22 risperidone 1 mg tablet 1 mg PO BID@09,14 06/30/22 09/12/22 risperidone 3 mg tablet 3 mg PO HS 06/30/22 09/12/22 tamsulosin 0.4 mg capsule 0.4 mg PO DAILY 06/30/22 09/12/22 alprazolam 0.25 mg tablet 0.25 mg PO HS 09/12/22 09/12/22 ascorbic acid (vitamin C) 1,000 mg 1 g PO DAILY 09/12/22 09/12/22 tablet (C-1000 with Erin Hips) diltiazem HCl 180 mg 180 mg PO DAILY 09/12/22 09/12/22 capsule,extended release 24 hr Previous Rx's Medication Instructions Recorded cephalexin 500 mg capsule 500 mg PO QID #20 caps 06/29/22 Allergies Allergy/AdvReac Type Severity Reaction Status Date / Time [place] Allergy Severe Anaphylaxis Verified 07/31/22 22:29 acetaminophen Allergy Mild Messes Verified 07/31/22 22:29 With DEXCOM Review of Systems Narrative: negative unless otherwise stated in HPI PFSH PFSH Medical History Asthma, mild intermittent Bipolar 2 disorder BPH with urinary obstruction CAD (coronary artery disease) of bypass graft Controlled substance agreement signed Depression with anxiety Diabetes mellitus type 1 with complications Heart murmur Hypertension Hypothyroidism (acquired) IDDM (insulin dependent diabetes mellitus) Lumbar disc disease Memory loss Parkinsons disease Primary osteoarthritis of knees, bilateral PTSD (post-traumatic stress disorder) Surgical History H/O cataract extraction S/P CABG x 4 Social History Smoking Status: Current every day smoker What tobacco products do you use: cigars Do you use any of these nicotine containing products: None Second hand tobacco smoke exposure: No How often do you have a drink containing alcohol: never AUDIT-C Alcohol total score: 0 Non-prescribed substance use: denies use service: No Exam Narrative: Exam Narrative: Const: Well-nourished, Well-developed, in No distress Eyes: PERRL, no conjunctival injection, and symmetrical lids ENMT: Atraumatic external nose and ears. Moist mucous membranes MSK:Extremities w/o deformity, Normal Active ROM Skin: Warm, Dry. access port in right upper chest Neuro: Normal Muscle tone, No focal neurological deficits. Psych: Awake, Alert, & Oriented x3. Appropriate mood and affect. Medical Decision Making MDM Narrative Medical decision making narrative: patient is 63-year-old male here to have his port accessed. States he forgot to get the access before he left his doctor's office today he has no other complaints. His port was de accessed he was discharged home. Discharge Plan Discharge Clinical Impression: Port-A-Cath in place Patient Disposition: Home, Self-Care Condition: Stable Instructions: Implanted Venous Access Port (DC) Additional Instructions: follow-up the primary care provider. Return if there is any new symptoms Prescriptions: No Action ondansetron HCl 4 mg tablet 4 mg PO levothyroxine 88 mcg tablet 88 mcg PO DAILY meclizine 25 mg tablet 25 mg PO TID PRN (DME) Dexcom G6 Transmitter Device See Rx Instructions .ROUTE .MEDSUPPLY Qty: 1 Rx Instructions: As directed Certavite-Antioxidant 18-400 mg-mcg tablet 1 tab PO DAILY duloxetine 20 mg capsule,delayed release(DR/EC) 20 mg PO DAILY memantine 5 mg tablet 5 - 10 mg PO BID Rx Instructions: 10 MG (2 TABS) IN AM AND 5 MG (1 TAB) IN PM escitalopram oxalate 10 mg tablet 10 mg PO DAILY risperidone 0.5 mg tablet 0.5 mg PO HS Rx Instructions: TOTAL 3.5 MG AT HS risperidone 1 mg tablet 1 mg PO BID@09,14 gabapentin 100 mg capsule 100 mg PO TID docusate sodium 100 mg capsule PO tamsulosin 0.4 mg capsule 0.4 mg PO DAILY alprazolam 0.25 mg tablet 0.125 mg PO BID@09,14 risperidone 3 mg tablet 3 mg PO HS Rx Instructions: 3.5 MG TOTAL AT HS aspirin 81 mg tablet,delayed release (DR/EC) 81 mg PO DAILY atorvastatin 80 mg tablet 80 mg PO HS fentanyl 50 mcg/hr patch 72 hour 1 patch transdermal Q72H (DME) pen needle, diabetic [BD Ultra-Fine Short Pen Needle] 31 gauge x 5/16 needle See Rx Instructions .ROUTE .MEDSUPPLY Qty: 1200 Patient Comments: USE THREE TIMES DAILY BEFORE MEALS Rx Instructions: As directed insulin glargine [Lantus Solostar U-100 Insulin] 100 unit/mL (3 mL) insulin pen 5 - 6 unit subcut BID Patient Comments: INJECT 6 UNITS EVERY MORNING AND 5 UNITS EVERY EVENING hydrocodone-ibuprofen 7.5-200 mg tablet 1 tab PO (DME) Dexcom G6 Sensor Device See Rx Instructions .ROUTE .MEDSUPPLY Qty: 1 Rx Instructions: As directed insulin aspart U-100 100 unit/mL (3 mL) insulin pen subcut cyclobenzaprine 10 mg tablet 10 mg PO donepezil 5 mg tablet 5 mg PO oxycodone 5 mg tablet 5 mg PO naloxone 4 mg/actuation spray,non-aerosol 1 spray intranasal . DIREC PRN Rx Instructions: FOR RR LESS THAN 8/MIN (DME) Accu-Chek Siria Plus test strp Strip See Rx Instructions .ROUTE .MEDSUPPLY Qty: 10 Rx Instructions: As directed levothyroxine 100 mcg tablet 100 mcg PO ibuprofen 600 mg tablet 600 mg PO metoclopramide HCl 5 mg tablet 5 mg PO Q6H PRN (Reason: nausea and vomiting) hydroxyzine HCl 25 mg tablet 25 mg PO hydrocortisone 2.5 % cream 1 applic topical BID PRN Patient Comments: APPLY TO AFFECTED AREA(S) TWICE A DAY TO ITCHY AREA ON ANKLE hydromorphone 2 mg tablet 2 mg PO [place] Mag Zinc Plus D3 333 mg-133 unit -133 mg-5 mg tablet 1 tab PO DAILY cholecalciferol (vitamin D3) 125 mcg (5,000 unit) capsule 125 mcg PO DAILY alprazolam 0.25 mg tablet 0.25 mg PO HS ascorbic acid (vitamin C) [C-1000 with Erin Hips] 1,000 mg tablet 1 g PO DAILY diltiazem HCl 180 mg capsule,extended release 24hr 180 mg PO DAILY cephalexin 500 mg capsule 500 mg PO QID Qty: 20 0RF Follow Up/Referrals: Tayler Adler DO [Primary Care Provider] - Stand Alone Forms: [facility] Info Instructions
[2023-03-11] MEDS: HEPARIN 500 UNIT/5 ML SYRINGE IVF (17:10)
--- NOTE | 2023-03-11 17:36 | ED.NURSE ---
Pt was in [place] today at his oncology visit and he states the nurse left the ryan needle in his port and did not take it out. This nurse triaged pt and then after pt was seen by a doctor, this nurse used 5ml Heparin flush to flush and de-access port located in right upper chest. Ryan needle was removed and disposed of and bandaid placed over port, no bleeding noted.
[2023-03-11 17:39] VITALS: RESP 22; TEMP 36.8; O2SAT 95
== END 2023-03-11 17:40 | disposition home or self-care (01) ==
LOC: ED 17:13
PROVIDERS: Emergency Provider Student in an Organized Health Care Education/Training Program; PCP Family Medicine
DX: Z45.2 Encounter for adjustment and management of vascular access device (principal)
CPT/HCPCS: 99282; J1642

== ENCOUNTER 2023-03-15 10:31 | Outpatient (CLI) | payer OTHER, SELFPAY | END 2023-03-15 10:32 | disposition home or self-care (01) | LOC: AMB 04-07 12:19 | PROVIDERS: PCP Family Medicine; Visit Provider Family Medicine | DX: I46.9 Cardiac arrest, cause unspecified (principal) ==